=== PATIENT | female | born 1950 | race American Indian/Alaskan Native ===

== ENCOUNTER 2019-11-08 00:46 | Emergency (ER) | payer OTHER ==
--- NOTE | 2019-11-08 02:55 | XRay Report ---
RIGHT SHOULDER 3 VIEWS INDICATION: right shoulder pain. COMPARISON: No relevant prior imaging study available. FINDINGS: No acute fracture or dislocation is seen. There is high riding humeral head which can be seen in the setting of significant rotator cuff pathology, likely chronic. Calcifications between the humeral hea d and acromion are likely due to calcific tendinitis/hydroxyapatite deposition disease in the rotator cuff. IMPRESSION: 1. No acute findings. 2. Rotator cuff calcific tendinitis. 3. Probable chronic rotator cuff tear. Signer Name: Fidel Wilcox MD Signed: 11/08/2019 2:51 AM Workstation Name: [id number]
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
[2019-11-08 05:25] VITALS: BP 156/101
== END 2019-11-08 05:25 | disposition home or self-care (01) ==
LOC: ED 00:46
DX: S46.001A Unspecified injury of muscle(s) and tendon(s) of the rotator cuff of right shoulder, initial encounter (principal); M77.8 Other enthesopathies, not elsewhere classified; I10 Essential (primary) hypertension; Z91.09 Other allergy status, other than to drugs and biological substances; Z98.890 Other specified postprocedural states; V89.2XXA Person injured in unspecified motor-vehicle accident, traffic, initial encounter; Y93.89 Activity, other specified; Y92.410 Unspecified street and highway as the place of occurrence of the external cause; Y99.8 Other external cause status